=== PATIENT | male | born 1935 | race Caucasian/White ===

== ENCOUNTER 2017-11-27 06:37 | Day surgery (SDC) | payer MEDICARE, OTHER ==
[~2017-11-27 06:37] MED LIST: Acetaminophen TAB* 325 MG PO PRN; Buffered Lidocaine 0.9% SYRIN* 5 ML/SYR SYRINGE INTRADERM ONE
[2017-11-27] MEDS ORDERED: Midazolam* 1 MG/ML 2 ML VIAL (2 MG) ONE (06:59)
[2017-11-27] MEDS ORDERED: fentaNYL* 50 MCG/ML 2 ML VIAL (100 MCG VIAL) ONE (06:59)
[2017-11-27] MEDS ORDERED: Ketorolac 0.5% OPHTH (NF) 0.5 % 5 ML BTL ONE ×2 (07:40→09:02)
[2017-11-27] MEDS ORDERED: acetaZOLAMIDE TAB* 250 MG ONE ×2 (07:40→09:02)
[2017-11-27] MEDS ORDERED: Phenylephrine 2.5% OPTH.SOL* 2 ML BTL ONE ×2 (07:40→09:02)
[2017-11-27] MEDS ORDERED: Lidocaine 2% EPI 1:200000 MPF*10-20 ML VIAL ONE ×2 (07:40→09:02)
[2017-11-27] MEDS ORDERED: Lidocaine 1%* 5 ML VIAL ONE ×2 (07:40→09:02)
[2017-11-27] MEDS ORDERED: Neomycin/Polymy/Dex OPTH.SUSP* MAXITROL 0.1% 5 ML ONE ×2 (07:40→09:02)
[2017-11-27] MEDS ORDERED: Cyclopentolate 1% OPTH.SOL* 2 ML BTL ONE ×2 (07:40→09:02)
[2017-11-27] MEDS ORDERED: Povidone Iodine 5% OPTH* 30 ML BTL ONE ×2 (07:40→09:02)
[2017-11-27] MEDS ORDERED: Proparacaine 0.5% OPHTH.SOL* 15 ML BTL ONE ×2 (07:41→09:03)
[2017-11-27 08:19] VITALS: BP 139/84
--- NOTE | 2017-11-27 18:26 | OP ---
DATE OF OPERATION: 11/27/17 - [facility] DATE OF : 33 SURGEON: Jerry Godoy M.D. PREOPERATIVE DIAGNOSIS: Cataract, left. POSTOPERATIVE DIAGNOSIS: Cataract, left. OPERATIVE PROCEDURE: Extracapsular cataract extraction with IOL, left eye. DESCRIPTION OF PROCEDURE: The patient was brought to the operating room after being given 1/2% Alcaine with epinephrine drops in the preoperative area. The eye was prepped and draped in the usual sterile fashion. Sterile drape and eyelid speculum were placed. Again, topical 1/2% Alcaine with epinephrine was given. A paracentesis incision was made at the 3 o'clock position with the No.75 blade. Clear cornea incision 2.2 x 2.2-mm was created at the 6 o'clock position starting at the anterior limbus using the 2.2-mm keratome. The anterior chamber was irrigated with 0.4 mL of 1% non-preservative intracameral lidocaine and filled with DisCoVisc. A capsulorrhexis was completed using the cystotome and the Utrata forceps. Hydrodissection was performed with balanced salt solution. The lens nucleus was removed with the Phacoemulsification handpiece without incident. Cortex was removed with the irrigation-aspiration handpiece. The capsular bag was re-inflated using DisCoVisc and an [id number] 16 implant was inserted with the shooter. The irrigation-aspiration handpiece was used to remove all residual DisCoVisc. The eye was refilled with balanced salt solution and the wound checked and found to be watertight. Topical Maxitrol drops were given. [id number]/[facility] #: [id number] [facility]
== END 2017-11-27 08:21 | disposition home or self-care (01) ==
LOC: OREAST 06:37
PROVIDERS: ATTEND Specialist
DX: H25.812 Combined forms of age-related cataract, left eye (principal); H01.021 Squamous blepharitis right upper eyelid; H01.022 Squamous blepharitis right lower eyelid; H01.024 Squamous blepharitis left upper eyelid; H01.025 Squamous blepharitis left lower eyelid; I10 Essential (primary) hypertension; C50.021 Malignant neoplasm of nipple and areola, right male breast; E78.5 Hyperlipidemia, unspecified; I44.30 Unspecified atrioventricular block; Z95.0 Presence of cardiac pacemaker; I47.2 Ventricular tachycardia; M19.90 Unspecified osteoarthritis, unspecified site
CPT/HCPCS: A9270-GY; J2250; J3010; V2632

== ENCOUNTER 2017-12-04 10:58 | Day surgery (SDC) | payer MEDICARE, OTHER ==
[~2017-12-04 10:58] MED LIST changes: +Cyclopentolate 1% OPTH.SOL* 2 ML BTL ONE; +Ketorolac 0.5% OPHTH (NF) 0.5 % 5 ML BTL ONE; +Lidocaine 1%* 5 ML VIAL ONE; +Lidocaine 2% EPI 1:200000 MPF*10-20 ML VIAL ONE; +Neomycin/Polymy/Dex OPTH.SUSP* MAXITROL 0.1% 5 ML ONE; +Phenylephrine 2.5% OPTH.SOL* 2 ML BTL ONE; +Povidone Iodine 5% OPTH* 30 ML BTL ONE; +Proparacaine 0.5% OPHTH.SOL* 15 ML BTL ONE; +acetaZOLAMIDE TAB* 250 MG ONE
[2017-12-04] MEDS ORDERED: Midazolam* 1 MG/ML 5 ML VIAL (5 MG) ONE (13:34)
[2017-12-04 14:10] VITALS: BP 132/79
--- NOTE | 2017-12-05 12:23 | OP ---
DATE OF OPERATION: 12/04/17 [facility] DATE OF : 33 SURGEON: Jerry Godoy M.D. PREOPERATIVE DIAGNOSIS: Cataract, right eye. POSTOPERATIVE DIAGNOSIS: Cataract, right eye. OPERATIVE PROCEDURE: Extracapsular cataract extraction with intraocular lens implant, right eye. DESCRIPTION OF PROCEDURE: The patient was brought to the operating room after being given 1/2% Alcaine with epinephrine drops in the preoperative area. The eye was prepped and draped in the usual sterile fashion. Sterile drape and eyelid speculum were placed. Again, topical 1/2% Alcaine with epinephrine was given. A paracentesis incision was made at the 9 o'clock position with the No.75 blade. Clear cornea incision 2.2 x 2.2-mm was created at the 12 o'clock position starting at the anterior limbus using the 2.2-mm keratome. The anterior chamber was irrigated with 0.4 mL of 1% non-preservative intracameral lidocaine and filled with DisCoVisc. A capsulorrhexis was completed using the cystotome and the Utrata forceps. Hydrodissection was performed with balanced salt solution. The lens nucleus was removed with the Phacoemulsification handpiece without incident. Cortex was removed with the irrigation-aspiration handpiece. The capsular bag was re-inflated using DisCoVisc and an [id number] 16.5 implant was inserted with the shooter. The irrigation-aspiration handpiece was used to remove all residual DisCoVisc. The eye was refilled with balanced salt solution and the wound checked and found to be watertight. Topical Maxitrol drops were given. [id number]/[facility] #: [id number] [facility]
== END 2017-12-04 14:20 | disposition home or self-care (01) ==
LOC: OREAST 10:58
PROVIDERS: ATTEND Specialist
DX: H25.811 Combined forms of age-related cataract, right eye (principal); H01.021 Squamous blepharitis right upper eyelid; H01.022 Squamous blepharitis right lower eyelid; H01.024 Squamous blepharitis left upper eyelid; H01.025 Squamous blepharitis left lower eyelid; I10 Essential (primary) hypertension; Z95.0 Presence of cardiac pacemaker; Z85.3 Personal history of malignant neoplasm of breast; M19.90 Unspecified osteoarthritis, unspecified site
CPT/HCPCS: A9270-GY; J2250; V2632

== ENCOUNTER → 2019-04-13 11:55 | Day surgery (SDC) | payer MEDICARE, OTHER ==
[~2019-04-13 11:55] MED LIST changes: -Acetaminophen TAB* 325 MG PO PRN; -Buffered Lidocaine 0.9% SYRIN* 5 ML/SYR SYRINGE INTRADERM ONE; -Cyclopentolate 1% OPTH.SOL* 2 ML BTL ONE; +Diazepam TAB(*) 5 MG ONE; +Diazepam TAB(*) 5 MG PO PRN; -Ketorolac 0.5% OPHTH (NF) 0.5 % 5 ML BTL ONE; +Lidocaine 1% INJ* 10 MG/ML 30 ML SDV ONE; -Lidocaine 1%* 5 ML VIAL ONE; -Lidocaine 2% EPI 1:200000 MPF*10-20 ML VIAL ONE; +Midazolam* 1 MG/ML 5 ML VIAL (5 MG) ONE; +NS 0.9% 1000 ML** 1,000 ML IV SCH; -Neomycin/Polymy/Dex OPTH.SUSP* MAXITROL 0.1% 5 ML ONE; -Phenylephrine 2.5% OPTH.SOL* 2 ML BTL ONE; -Povidone Iodine 5% OPTH* 30 ML BTL ONE; -Proparacaine 0.5% OPHTH.SOL* 15 ML BTL ONE; -acetaZOLAMIDE TAB* 250 MG ONE; +ceFAZolin VIAL 1 GM in NS *SYRINGE * * 10 ML ONE; +ceFAZolin* 2 GM* ONE DOSE (Duplex) IVPB; +fentaNYL* 50 MCG/ML 2 ML VIAL (100 MCG VIAL) ONE
[2019-04-13 15:38] VITALS: BP 142/88
--- NOTE | 2019-04-14 03:07 | OP ---
CC: Dr. Gordon * DATE OF OPERATION: 04/13/19 - [facility] C[facility] DATE OF : 33 SURGEON: Luiz Odom MD. ANESTHESIA: Local anesthesia with conscious sedation. PRE-OP DIAGNOSIS: Pacemaker at elective replacement indicator. POST-OP DIAGNOSIS: Pacemaker at elective replacement indicator. OPERATIVE PROCEDURE: Dual chamber pacemaker generator change. ESTIMATED BLOOD LOSS: Nil. COMPLICATIONS: None. INDICATIONS: The patient is an 83-year-old gentleman with a history of high- degree AV block, had a pacemaker implanted in 2009. He has been followed in my office. His pacemaker has reached elective replacement indicator. Generator change was recommended. DESCRIPTION OF PROCEDURE: The patient was in a fasting state. Informed consent had been obtained prior to the procedure, all labs were reviewed. The patient was placed supine on the procedure table. His left deltopectoral area was cleaned and draped in the usual fashion. 1% lidocaine was used for local anesthesia. A 3.5 cm incision was made across the previous incision line and blunt dissection was carried down to the fibrous sheath. The fibrous sheath was opened and the pacemaker was removed from the pocket. The generator was detached from the atrioventricular leads and a new generator was attached appropriately to the atrioventricular leads. The explanted device is a [employer], model TZ3642, serial number [id number]. The new device is [employer] pacemaker model number [id number], serial number [id number]. The device was placed in the pocket. The surgical incision was closed in three layers. The device was tested and noted to be functioning normally. Both atrioventricular leads are functioning normally. The patient was returned to the holding area in stable condition. [id number]/[facility] #: [id number] [facility]
== END | disposition home or self-care (01) ==
LOC: CHICATH 11:55
PROVIDERS: ATTEND Specialist
DX: Z45.010 Encounter for checking and testing of cardiac pacemaker pulse generator [battery] (principal); I47.1 Supraventricular tachycardia; I48.0 Paroxysmal atrial fibrillation; I49.5 Sick sinus syndrome; I35.0 Nonrheumatic aortic (valve) stenosis; I10 Essential (primary) hypertension
CPT/HCPCS: 33228; 88300; 99156; A9270-GY; C1785; J0690; J2250; J3010

== ENCOUNTER 2020-07-12 13:42 | Observation (INO) ==
[2020-07-12] MEDS ORDERED: NS 0.9% 1000 ml BAG 1,000 ML IV ONE (13:49)
[2020-07-12 14:54] LABS: ABS Eosinophils 0.1 10^3/ul (0-0.6); ABS Lymphocytes 0.6 10^3/ul (1.0-4.8); ABS Monocytes 0.5 10^3/ul (0-0.8); ABS Neutrophils 6.5 10^3/ul (1.5-7.7); Eosinophil % 1.2 %; Hematocrit 41 % (42-52); Hemoglobin 13.7 g/dL (14.0-18.0); Lymphocyte % 7.8 %; Mean Corpuscular HGB Conc 34 g/dL (31-36); Mean Corpuscular Hemoglobin 31 pg (27-31); Mean Corpuscular Volume 92 fL (80-94); Mean Platelet Volume 9.5 fL (7.4-10.4); Platelet Count 140 10^3/uL (150-450); Red Blood Count 4.43 10^6 /uL (4.18-5.48); Red Cell Distribution Width 14 % (10-15); White Blood Count 7.8 10^3/uL (3.5-10.8)
[2020-07-12 15:17] LABS: Troponin I 0.01 ng/mL (<0.03)
[2020-07-12 15:42] LABS: Albumin 4.3 g/dL (3.2-5.2); Albumin/Globulin Ratio 1.8 (1-3); Calcium 10.3 mg/dL (8.6-10.3); EGFR African American 72.4 (>60); EGFR Non-African American 59.8 (>60); Globulin 2.4 g/dL (2-4); Potassium 4.7 mmol/L (3.5-5.0); Total Bilirubin 0.6 mg/dL (0.2-1.0); Total Protein 6.7 g/dL (6.4-8.9)
[2020-07-12] MEDS ORDERED: Iodixanol (CONTRAST) 320 MG/ML 100 ML SDV IV ONE (15:50)
[2020-07-12 21:09] LABS: Magnesium 2.3 mg/dL (1.9-2.7)
[2020-07-13 07:07] LABS: ABS Eosinophils 0.3 10^3/ul (0-0.6); ABS Lymphocytes 1.3 10^3/ul (1.0-4.8); ABS Monocytes 0.8 10^3/ul (0-0.8); ABS Neutrophils 4.9 10^3/ul (1.5-7.7); Eosinophil % 3.5 %; Hematocrit 38 % (42-52); Hemoglobin 13.1 g/dL (14.0-18.0); Lymphocyte % 18.2 %; Mean Corpuscular HGB Conc 34 g/dL (31-36); Mean Corpuscular Hemoglobin 31 pg (27-31); Mean Corpuscular Volume 91 fL (80-94); Mean Platelet Volume 10.3 fL (7.4-10.4); Platelet Count 131 10^3/uL (150-450); Red Cell Distribution Width 14 % (10-15); White Blood Count 7.3 10^3/uL (3.5-10.8)
[2020-07-13 07:30] LABS: Calcium 9.6 mg/dL (8.6-10.3); EGFR African American 93.4 (>60); EGFR Non-African American 77.2 (>60); Potassium 3.5 mmol/L (3.5-5.0)
[2020-07-13] MEDS: Potassium Chlor 20 meq TAB.ER PO SCH ×2 (10:49→15:43)
[2020-07-13 16:16] VITALS: BP 137/67
== END 2020-07-13 18:20 | disposition home or self-care (01) ==
LOC: MEDTELE 13:42 → ED 13:42
PROVIDERS: ADMIT Pediatrics; ATTEND Internal Medicine

== ENCOUNTER 2022-03-14 13:20 | Inpatient (IN) ==
[2022-03-14 16:15] LABS: ABS Basophils 0.1 10^3/ul (0-0.2); ABS Eosinophils 0.1 10^3/ul (0-0.6); ABS Lymphocytes 1.2 10^3/ul (1.0-4.8); ABS Neutrophils 6.5 10^3/ul (1.5-7.7); Eosinophil % 1.4 %; Hematocrit 44 % (42-52); Hemoglobin 14.7 g/dL (14.0-18.0); Lymphocyte % 13.7 %; Mean Corpuscular HGB Conc 33 g/dL (31-36); Mean Corpuscular Hemoglobin 31 pg (27-31); Mean Corpuscular Volume 92 fL (80-94); Mean Platelet Volume 9.2 fL (7.4-10.4); Platelet Count 172 10^3/uL (150-450); Red Blood Count 4.81 10^6 /uL (4.18-5.48); Red Cell Distribution Width 14 % (10-15); White Blood Count 8.9 10^3/uL (3.5-10.8)
[2022-03-14 16:54] LABS: Albumin/Globulin Ratio 1.7 (1-3); Calcium 9.6 mg/dL (8.6-10.3); Globulin 2.3 g/dL (2-4); Magnesium 2.3 mg/dL (1.9-2.7); Potassium 4.2 mmol/L (3.5-5.0); Total Bilirubin 0.6 mg/dL (0.2-1.0); Total Protein 6.3 g/dL (6.4-8.9); eGFR CKD-EPI 83.5 (>60)
[2022-03-14 16:56] LABS: Urine Appearance Clear; Urine Bilirubin Negative (Negative); Urine Blood Negative (Negative); Urine Color Yellow; Urine Glucose Negative (Negative); Urine Ketones Negative (Negative); Urine Nitrite Negative (Negative); Urine Protein Negative (Negative); Urine Specific Gravity 1.016 (1.002-1.030); Urine Urobilinogen Negative (Negative)
[2022-03-14 17:38] LABS: High Sensitivity Troponin 1 Hr 33 pg/mL (<20)
[2022-03-14] MEDS ORDERED: Metoprolol Tartrate 5 mg VIAL 5 ml VIAL (1 mg/ml) IV ONE (17:39)
[2022-03-14] MEDS ORDERED: Olmesartan 20 mg TAB (NF) PO ONE (18:10)
[2022-03-15] MEDS ORDERED: Lorazepam PYXIS KEY PRN (03:03)
[2022-03-15] MEDS ORDERED: LORazepam 2 mg VIAL 1 ml IV PUSH ONE (03:03)
[2022-03-15] MEDS ORDERED: LORazepam 2 mg VIAL 1 ml ONE ×2 (03:07→03:10)
[2022-03-15] MEDS: Enoxaparin 40 MG/0.4 ML SYR SUBCUT SCH (05:44)
[2022-03-15 07:02] LABS: Hematocrit 44 % (42-52); Mean Corpuscular HGB Conc 34 g/dL (31-36); Mean Corpuscular Hemoglobin 31 pg (27-31); Mean Corpuscular Volume 93 fL (80-94); Mean Platelet Volume 9.2 fL (7.4-10.4); Platelet Count 163 10^3/uL (150-450); Red Blood Count 4.77 10^6 /uL (4.18-5.48); Red Cell Distribution Width 14 % (10-15); White Blood Count 8.8 10^3/uL (3.5-10.8)
[2022-03-15 08:06] LABS: Calcium 9.8 mg/dL (8.6-10.3); Potassium 3.5 mmol/L (3.5-5.0); eGFR CKD-EPI 68.7 (>60)
[2022-03-15] MEDS ORDERED: Potassium Chlor 20 meq TAB.ER PO ONE (08:23)
[2022-03-15] MEDS ORDERED: Olmesartan 20 mg TAB (NF) PO SCH (09:00)
[2022-03-16] MEDS: Enoxaparin 40 MG/0.4 ML SYR SUBCUT SCH (05:43)
[2022-03-16 06:42] LABS: Hematocrit 44 % (42-52); Hemoglobin 14.6 g/dL (14.0-18.0); Mean Corpuscular HGB Conc 34 g/dL (31-36); Mean Corpuscular Hemoglobin 31 pg (27-31); Mean Corpuscular Volume 92 fL (80-94); Mean Platelet Volume 9.7 fL (7.4-10.4); Platelet Count 156 10^3/uL (150-450); Red Blood Count 4.72 10^6 /uL (4.18-5.48); Red Cell Distribution Width 14 % (10-15); White Blood Count 8.5 10^3/uL (3.5-10.8)
[2022-03-16 07:25] LABS: Calcium 9.5 mg/dL (8.6-10.3); Magnesium 2.2 mg/dL (1.9-2.7); Potassium 3.7 mmol/L (3.5-5.0); eGFR CKD-EPI 82.9 (>60)
[2022-03-16] MEDS ORDERED: OLANZapine IM (NF) 10 MG VIAL IM ONE ×2 (10:04→17:55)
[2022-03-17] MEDS: Enoxaparin 40 MG/0.4 ML SYR SUBCUT SCH (10:25)
[2022-03-18] MEDS ORDERED: OLANZapine IM (NF) 10 MG VIAL IM ONE (05:32)
[2022-03-18] MEDS: Enoxaparin 40 MG/0.4 ML SYR SUBCUT SCH (08:34)
[2022-03-18] MEDS ORDERED: NS 0.9% 250 ml 250 ML IV ONE (12:13)
[2022-03-18 12:22] LABS: ABS Eosinophils 0.3 10^3/ul (0-0.6); ABS Lymphocytes 1.1 10^3/ul (1.0-4.8); Hematocrit 43 % (42-52); Lymphocyte % 13.6 %; Mean Corpuscular HGB Conc 35 g/dL (31-36); Mean Corpuscular Hemoglobin 31 pg (27-31); Mean Corpuscular Volume 89 fL (80-94); Mean Platelet Volume 8.9 fL (7.4-10.4); Nucleated Red Blood Cells % 0.1; Platelet Count 161 10^3/uL (150-450); Red Blood Count 4.86 10^6 /uL (4.18-5.48); Red Cell Distribution Width 14 % (10-15); White Blood Count 8.4 10^3/uL (3.5-10.8)
[2022-03-18 12:48] LABS: Calcium 9.6 mg/dL (8.6-10.3); Potassium 4.5 mmol/L (3.5-5.0); eGFR CKD-EPI 60.3 (>60)
[2022-03-18 14:25] LABS: High Sensitivity Troponin 1 Hr 31 pg/mL (<20)
[2022-03-19] MEDS: Enoxaparin 40 MG/0.4 ML SYR SUBCUT SCH (10:30)
[2022-03-20] MEDS: Enoxaparin 40 MG/0.4 ML SYR SUBCUT SCH (09:25)
[2022-03-20 12:45] LABS: Rapid COVID-19 Molecular Undetected (Undetected)
[2022-03-21] MEDS: Enoxaparin 40 MG/0.4 ML SYR SUBCUT SCH (05:58)
[2022-03-21 12:37] VITALS: BP 137/86
== END 2022-03-21 12:25 | DRG 312 ==
LOC: ED 13:20 → EDHOLD 13:20 → SUATTDRO 19:27 → MEDTELE 22:04 → SUATTDRO 03-16 12:18
PROVIDERS: ADMIT Internal Medicine; ATTEND Hospitalist